=== PATIENT | male | born 1945 | race Caucasian/White ===

== ENCOUNTER → 2017-06-21 | Outpatient (CLI) | payer OTHER ==
[~2017-06-21] MED LIST: APIX5 PO; APIX5TAB PO; ATOR40TA49 PO; DILTCD300 PO; HYDR-3516 PO; LISI10TA3 PO; METO25TA3 PO; MULT-207 PO; VITA1000 PO
--- NOTE | 2017-06-21 10:35 | RADRPT ---
EXAM DATE/TIME: 06/21/2017 10:22 [facility] COMPARISON: No previous studies available for comparison. INDICATIONS : Evaluate for pneumonia,pneumothorax and communicable diseases. Pre-op Colectomy MEDICAL HISTORY : None. SURGICAL HISTORY : None. ENCOUNTER: Initial ACUITY: 1 day PAIN SCORE: 0/10 LOCATION: chest FINDINGS: PA and lateral views of the chest demonstrate the lungs to be symmetrically aerated without evidence of mass, infiltrate or effusion. The cardiomediastinal contours are unremarkable. Osseous structure s are intact. CONCLUSION: Normal examination. Russell Lantigua MD on June 21, 2017 at 10:33 Board Certified Radiologist. This report was verified electronically.
[2017-06-21 10:52] LABS: AUTOMATED NEUTROPHIL # 3.4 TH/MM3 (1.8-7.7); BASOPHIL % 0.6 % (0.0-2.0); EOSINOPHIL # 0.1 TH/MM3 (0-0.4); EOSINOPHIL % 2.8 % (0.0-4.0); HEMATOCRIT 41.7 % (39.0-51.0); HEMO FLAGS DIFF FINAL; LYMPH % 20.5 % (9.0-44.0); MEAN CELL VOLUME 88.6 FL (80.0-100.0); MEAN CORPUSCULAR HEMOGLOBIN 30.4 PG (27.0-34.0); MEAN CORPUSCULAR HGB CONC 34.3 % (32.0-36.0); MONO % 7.8 % (0.0-8.0); NEUT % 68.3 % (16.0-70.0); PLATELET COUNT 140 TH/MM3 (150-450)
[2017-06-21 11:03] LABS: APTT (PATIENT) 26.3 SEC (24.3-30.1); PROTHROMBIN TIME - PATIENT 10.4 SEC (9.8-11.6)
[2017-06-21 11:13] LABS: BLOOD, URINE NEG (NEG); COMMENT (UR) CULT NOT INDICATED; CULTURE IF INDICATED CULT NOT INDICATED; GLUCOSE,URINE NEG (NEG); KETONE, URINE NEG (NEG); MUCUS URINE FEW /lpf (OCC); NITRITE,URINE NEG (NEG); URINE COLOR YELLOW (YELLW/STRAW)
[2017-06-21 11:28] LABS: ALT (GPT) 34 U/L (12-78); ANION GAP 4 MEQ/L (5-15); AST (GOT) 22 U/L (15-37); BICARBONATE 31.2 MEQ/L (21.0-32.0); BLOOD UREA NITROGEN 19 MG/DL (7-18); CHLORIDE 103 MEQ/L (98-107); GLOMERULAR FILTRATION RATE 86 ML/MIN (>89); GLUCOSE,FASTING 100 MG/DL (74-99); POTASSIUM 4.8 MEQ/L (3.5-5.1); SODIUM (NA) 138 MEQ/L (136-145)
[2017-06-21 11:31] LABS: ALKALINE PHOSPHATASE 71 U/L (45-117); TOTAL BILIRUBIN ADULT 0.4 MG/DL (0.2-1.0)
--- NOTE | 2017-06-21 14:04 | EKG ---
Date Performed: 06/21/2017 Time Performed: 09:50:44 PTAGE: 71 years EKG: Sinus rhythm Normal ECG PREVIOUS TRACING : 08/06/2015 12.29 Compared to prior electrocardiogram, Normal sinus rhythm garg s replaced atrial fibrillation DOCTOR: Kishor Collins Interpretating Date/Time 06/21/2017 14:03:11
== END ==
LOC: CPRE 09:20
PROVIDERS: ATTEND Colon & Rectal Surgery
DX: Z01.812 Encounter for preprocedural laboratory examination (principal); Z01.811 Encounter for preprocedural respiratory examination; Z01.810 Encounter for preprocedural cardiovascular examination; C18.2 Malignant neoplasm of ascending colon; Z79.01 Long term (current) use of anticoagulants
CPT/HCPCS: 36415; 71020; 80053; 81001; 82378; 85025; 85610; 85730; 86850; 86900; 86901; 93005

== ENCOUNTER 2017-06-23 10:40 | Inpatient (IN) | payer OTHER, MEDICARE ==
[~2017-06-23] VITALS: Ht 172.7 cm; Wt 89.6 kg
[~2017-06-23 10:40] MED LIST changes: -APIX5 PO; -ATOR40TA49 PO; -DILTCD300 PO; -HYDR-3516 PO
[2017-06-23] MEDS ORDERED: METOPROLOL TARTRATE 25 MG TAB PO PRN (11:15)
[2017-06-23] MEDS ORDERED: SODIUM CHLORID 0.9% 500 ML IV PRN (11:15)
[2017-06-23] MEDS ORDERED: LACTATED RINGER'S 1000 ML IV PRN (11:15)
[2017-06-23] MEDS ORDERED: POVIDONE IODINE 5% (ANTISEPSIS KIT) 4 APPLICATIONS EACH NARE PRN (11:15)
[2017-06-23] MEDS ORDERED: CHLORHEXIDINE GLUCONATE 2 % 1 PACK (2 CLOTHS) TOPICAL PRN (11:15)
[2017-06-23] MEDS ORDERED: METRONIDAZOLE 500 MG/100 ML ISONTONIC SOLN IV SCH (11:30)
[2017-06-23] MEDS ORDERED: ceFAZolin 1,000 MG/NS 100 ML IV SCH ×2 (11:30)
[2017-06-23] MEDS ORDERED: DEXT 5%-NACL 0.9% 1000 ML INJ 1,000 ML IV SCH (11:30)
[2017-06-23] MEDS ORDERED: ALVIMOPAN 12 MG CAPSULE - On Call PO SCH (11:30)
[2017-06-23] MEDS ORDERED: LACTATED RINGER'S 1000 ML INJ 1,000 ML IV ONE ×2 (11:30→12:00)
[2017-06-23] MEDS ORDERED: ONDANSETRON HCL 4 MG/2 ML VIAL IV ONE (12:00)
[2017-06-23] MEDS ORDERED: GLYCOPYRROLATE 1 MG/5 ML SYRINGE IV PUSH ONE (12:00)
[2017-06-23] MEDS ORDERED: NORMOSOL R INJ 1,000 ML IV ONE (12:00)
[2017-06-23] MEDS ORDERED: PROPOFOL 200 MG/20 ML AMP IV ONE (12:00)
[2017-06-23] MEDS ORDERED: LIDOCAINE HCL 1% PF 5 ML SYRINGE OTHER ONE (12:00)
[2017-06-23] MEDS ORDERED: PHENYLEPH/NS 1000 MCG/10 ML SYR IV ONE (12:00)
[2017-06-23] MEDS ORDERED: DEXAMETHASONE SOD PHOS 4 MG/ML VIAL IV ONE (12:00)
[2017-06-23] MEDS ORDERED: ROCURONIUM INJ 50 MG/5 ML SYRINGE IV PUSH ONE (12:00)
[2017-06-23] MEDS ORDERED: SUGAMMADEX SODIUM 200 MG/2 ML VIAL IV PUSH ONE (17:04)
[2017-06-23] MEDS ORDERED: DO NOT ADM ANY ANTICOAGULANT DRUGS PRN (17:25)
[2017-06-23] MEDS ORDERED: BENZOCAINE 6 MG/MENTHOL 10 MG LOZENGE BUCCAL PRN (17:30)
[2017-06-23] MEDS ORDERED: ONDANSETRON HCL 4 MG/2 ML VIAL IV PUSH PRN (17:30)
[2017-06-23] MEDS ORDERED: NALOXONE HCL 0.4 MG/ML AMP IV PUSH PRN (17:30)
[2017-06-23] MEDS ORDERED: Post-op Orders (for Pharmacy) XX ONE (17:30)
[2017-06-23] MEDS ORDERED: POTASSIUM CHLOR 40 MEQ PREMIX 100 ML IV PRN (17:30)
[2017-06-23] MEDS ORDERED: POTASSIUM CHLOR 20 MEQ PREMIX 100 ML IV PRN (17:30)
[2017-06-23] MEDS ORDERED: ACETAMINOPHEN/HYDROcodone 325 MG/5 MG TAB PO PRN (17:30)
[2017-06-23] MEDS ORDERED: SODIUM CHLORIDE 0.9% FLUSH 10 ML FLUSH IV FLUSH PRN (17:30)
[2017-06-23] MEDS ORDERED: ENALAPRILAT 1.25 MG/ML VIAL IV PUSH PRN (17:30)
[2017-06-23] MEDS ORDERED: KETOROLAC TROMETHAMINE 30 MG/ML (IVP) VIAL IVP PRN (17:30)
[2017-06-23] MEDS ORDERED: HYDROmorphone HCL PF 1 MG/ML VIAL ONE (17:32)
[2017-06-23] MEDS ORDERED: *morphine SULFATE 8 MG/ML PERIprocedure ONLY ONE ×2 (17:41→18:07)
[2017-06-23 18:37] LABS: AUTOMATED NEUTROPHIL # 7.2 TH/MM3 (1.8-7.7); BASOPHIL % 0.2 % (0.0-2.0); EOSINOPHIL # 0.1 TH/MM3 (0-0.4); HEMATOCRIT 40.7 % (39.0-51.0); HEMOGLOBIN 14.3 GM/DL (13.0-17.0); LYMPH % 10.4 % (9.0-44.0); LYMPHOCYTE # 0.9 TH/MM3 (1.0-4.8); MEAN CELL VOLUME 88.2 FL (80.0-100.0); MEAN CORPUSCULAR HEMOGLOBIN 30.9 PG (27.0-34.0); MEAN CORPUSCULAR HGB CONC 35.1 % (32.0-36.0); MEAN PLATELET VOLUME 7.9 FL (7.0-11.0); MONO % 2.9 % (0.0-8.0); MONOCYTE # 0.2 TH/MM3 (0-0.9); NEUT % 85.5 % (16.0-70.0); PLATELET COUNT 137 TH/MM3 (150-450); RED BLOOD COUNT 4.61 MIL/MM3 (4.50-5.90); RED CELL DISTRIBUTION WIDTH 13.5 % (11.6-17.2); WHITE BLOOD COUNT 8.4 TH/MM3 (4.0-11.0)
[2017-06-23 18:56] LABS: BICARBONATE 27.9 MEQ/L (21.0-32.0); CALCIUM 8.3 MG/DL (8.5-10.1); CREATININE 0.97 MG/DL (0.60-1.30)
[2017-06-23 19:00] VITALS: BP_SYST 142; BP_SYST 152; BP_DIAS 88; BP_DIAS 90; PULSE 88; PULSE 90; PULSE 97; RESP 16; TEMP 98.3; TEMP 98.5; O2SAT 100; O2SAT 99
[2017-06-23 20:00] VITALS: PULSE 92
[2017-06-23] MEDS: D5-LR + KCL 20 MEQ INJ 1,000 ML IV SCH ×2 (20:23→23:32)
[2017-06-23] MEDS: MORPHINE SULFATE 30 MG/30 ML PCA IV SCH (20:24)
[2017-06-23 21:00] VITALS: PULSE 88
[2017-06-23] MEDS: SODIUM CHLORIDE 0.9% FLUSH 10 ML FLUSH IV FLUSH SCH (21:00)
[2017-06-23] MEDS: METOCLOPRAMIDE HCL 10 MG/2 ML VIAL IVS SCH ×2 (21:33→23:31)
[2017-06-23] MEDS: FUROSEMIDE 20 MG/2 ML VIAL IV PUSH SCH (21:33)
[2017-06-23] MEDS: PCA - TOTAL MG MORPHINE DELIVERED PER SHIFT SCH (21:34)
[2017-06-23 22:00] VITALS: PULSE 100
[2017-06-23 23:00] VITALS: BP 116/60; PULSE 110; PULSE 91; TEMP 98.4; O2SAT 99
[2017-06-23] MEDS: ZOLPIDEM TARTRATE 5 MG TAB PO PRN (23:31)
[2017-06-23] MEDS: ceFAZolin 2 GM PREMIX 50 ML IV SCH (23:31)
[2017-06-23] MEDS: metroNIDAZOLE 500 MG INJ 100 ML IV SCH (23:31)
[2017-06-24] VITALS (19 sets, daily range): BP systolic 109–142; BP diastolic 65–80; PULSE 71–104; RESP 16–20; TEMP 97.7–100; O2SAT 91–99
[2017-06-24] MEDS: D5-LR + KCL 20 MEQ INJ 1,000 ML IV SCH ×3 (04:04→20:37)
[2017-06-24] MEDS: METOCLOPRAMIDE HCL 10 MG/2 ML VIAL IVS SCH ×4 (05:37→22:30)
[2017-06-24] MEDS: PCA - TOTAL MG MORPHINE DELIVERED PER SHIFT SCH ×3 (05:58→20:36)
[2017-06-24 06:57] LABS: AUTOMATED NEUTROPHIL # 7.1 TH/MM3 (1.8-7.7); BASOPHIL % 0.1 % (0.0-2.0); EOSINOPHIL % 0.1 % (0.0-4.0); HEMATOCRIT 36.4 % (39.0-51.0); HEMOGLOBIN 12.8 GM/DL (13.0-17.0); LYMPH % 8.9 % (9.0-44.0); LYMPHOCYTE # 0.8 TH/MM3 (1.0-4.8); MEAN CELL VOLUME 87.3 FL (80.0-100.0); MEAN CORPUSCULAR HEMOGLOBIN 30.7 PG (27.0-34.0); MEAN CORPUSCULAR HGB CONC 35.1 % (32.0-36.0); MEAN PLATELET VOLUME 7.9 FL (7.0-11.0); MONOCYTE # 0.8 TH/MM3 (0-0.9); NEUT % 81.9 % (16.0-70.0); PLATELET COUNT 141 TH/MM3 (150-450); RED BLOOD COUNT 4.17 MIL/MM3 (4.50-5.90); WHITE BLOOD COUNT 8.6 TH/MM3 (4.0-11.0)
[2017-06-24 07:22] LABS: BICARBONATE 29.9 MEQ/L (21.0-32.0); CALCIUM 8.2 MG/DL (8.5-10.1); CREATININE 0.94 MG/DL (0.60-1.30)
[2017-06-24] MEDS: SODIUM CHLORIDE 0.9% FLUSH 10 ML FLUSH IV FLUSH SCH ×2 (08:55→21:00)
[2017-06-24] MEDS ORDERED: ALVIMOPAN 12 MG CAPSULE PO SCH (09:00)
[2017-06-24] MEDS: metroNIDAZOLE 500 MG INJ 100 ML IV SCH ×2 (09:03→16:20)
[2017-06-24] MEDS: ceFAZolin 2 GM PREMIX 50 ML IV SCH ×2 (09:05→16:20)
[2017-06-24] MEDS: LISINOPRIL 10 MG TAB PO SCH (09:06)
[2017-06-24] MEDS: ALVIMOPAN 12 MG CAPSULE - Post-op dosing PO SCH ×2 (09:06→20:34)
[2017-06-24] MEDS: METOPROLOL TARTRATE 25 MG TAB PO SCH ×2 (09:06→20:35)
[2017-06-24] MEDS: FUROSEMIDE 20 MG/2 ML VIAL IV PUSH SCH ×2 (09:07→20:34)
[2017-06-24] MEDS: PANTOPRAZOLE SODIUM 40 MG VIAL IVP SCH (09:07)
[2017-06-24] MEDS: MORPHINE SULFATE 30 MG/30 ML PCA IV SCH (09:50)
--- NOTE | 2017-06-24 15:37 | HHI.PR ---
Subjective Remarks No N or V. Tolerating CLD. No BMs Objective Vital Signs Date Time Temp Pulse Resp B/P (MAP) Pulse Ox O2 Delivery O2 Flow Rate FiO2 06/24/17 14:07 85 06/24/17 13:55 92 06/24/17 13:20 16 06/24/17 13:12 79 06/24/17 12:03 81 06/24/17 11:47 81 06/24/17 11:47 97.7 86 16 123/69 (87) 94 06/24/17 10:36 82 06/24/17 10:03 16 06/24/17 09:50 16 06/24/17 09:00 87 06/24/17 08:45 79 06/24/17 08:45 97.9 84 16 142/80 (100) 99 06/24/17 05:58 18 06/24/17 05:06 73 06/24/17 04:00 79 06/24/17 03:36 95 06/24/17 03:00 97.8 93 109/68 (82) 99 06/24/17 02:45 99 Nasal Cannula 3.00 06/24/17 02:00 94 06/24/17 01:00 104 06/24/17 00:00 94 06/23/17 23:00 98.4 110 116/60 (78) 99 06/23/17 23:00 91 06/23/17 22:00 100 06/23/17 21:34 16 06/23/17 21:00 88 06/23/17 20:24 17 06/23/17 20:00 92 06/23/17 19:00 98.3 90 142/88 (106) 100 06/23/17 19:00 97 06/23/17 19:00 98.5 88 16 152/90 (110) 99 06/23/17 18:15 90 17 153/79 (103) 100 Nasal Cannula 3 06/23/17 18:15 97.9 91 17 153/78 (103) 100 Nasal Cannula 3 06/23/17 18:00 87 17 152/78 (102) 100 Nasal Cannula 3 06/23/17 17:45 84 14 174/78 (110) 100 Nasal Cannula 3 06/23/17 17:26 97.6 87 15 161/76 (104) 100 Nasal Cannula 3 I/O 06/23/17 06/23/17 06/23/17 06/24/17 06/24/17 06/24/17 07:00 15:00 23:00 07:00 15:00 23:00 Intake Total 1000 ml 1500 ml 3390 ml 150 ml Output Total 325 ml 1600 ml Balance 1000 ml 1175 ml 1790 ml 150 ml Intake Oral 240 ml IV Total 1000 ml 300 ml 3150 ml 150 ml Other 1200 ml Output Urine Total 250 ml 1600 ml Estimated Blood Loss 75 ml # Bowel Movements 2 Result Diagram: 06/24/17 0559 06/24/17 05 Objective Remarks VS-S Abd: dressing dry, soft I&Os and Labs - OK Assessment and Plan Assessment and Plan POD#1 Transfer to Decrease IV CLD today FLD tomorrow D/C pfeiffer in AM Remove dressing in AM Caleb Andrade MD Jun 24, 2017 15:37
[2017-06-24] MEDS: HEPARIN SODIUM - SQ 10,000 UNITS/ML VIAL SQ SCH (16:24)
[2017-06-25] VITALS (7 sets, daily range): BP systolic 126–168; BP diastolic 76–86; PULSE 73–95; RESP 17–20; TEMP 98–98.9; O2SAT 95–97
[2017-06-25] MEDS: MORPHINE SULFATE 30 MG/30 ML PCA IV SCH (00:50)
[2017-06-25] MEDS: HEPARIN SODIUM - SQ 10,000 UNITS/ML VIAL SQ SCH ×2 (03:50→14:35)
[2017-06-25] MEDS: METOCLOPRAMIDE HCL 10 MG/2 ML VIAL IVS SCH ×3 (04:20→16:32)
[2017-06-25] MEDS: PCA - TOTAL MG MORPHINE DELIVERED PER SHIFT SCH ×3 (04:20→20:58)
[2017-06-25] MEDS: D5-LR + KCL 20 MEQ INJ 1,000 ML IV SCH ×2 (04:20→15:16)
[2017-06-25] MEDS: FUROSEMIDE 20 MG/2 ML VIAL IV PUSH SCH ×2 (08:41→20:58)
[2017-06-25] MEDS: PANTOPRAZOLE SODIUM 40 MG VIAL IVP SCH (08:41)
[2017-06-25] MEDS: SODIUM CHLORIDE 0.9% FLUSH 10 ML FLUSH IV FLUSH SCH ×2 (08:41→20:58)
[2017-06-25] MEDS: METOPROLOL TARTRATE 25 MG TAB PO SCH ×2 (08:41→20:57)
[2017-06-25] MEDS: LISINOPRIL 10 MG TAB PO SCH (08:41)
[2017-06-25] MEDS: ALVIMOPAN 12 MG CAPSULE - Post-op dosing PO SCH ×2 (08:41→20:57)
[2017-06-25 08:59] LABS: AUTOMATED NEUTROPHIL # 7.7 TH/MM3 (1.8-7.7); BASOPHIL % 0.1 % (0.0-2.0); EOSINOPHIL % 0.4 % (0.0-4.0); HEMATOCRIT 40.4 % (39.0-51.0); HEMOGLOBIN 14.2 GM/DL (13.0-17.0); LYMPH % 9.9 % (9.0-44.0); LYMPHOCYTE # 0.9 TH/MM3 (1.0-4.8); MEAN CELL VOLUME 88.3 FL (80.0-100.0); MEAN CORPUSCULAR HGB CONC 35.1 % (32.0-36.0); MEAN PLATELET VOLUME 7.6 FL (7.0-11.0); MONO % 8.3 % (0.0-8.0); MONOCYTE # 0.8 TH/MM3 (0-0.9); NEUT % 81.3 % (16.0-70.0); PLATELET COUNT 145 TH/MM3 (150-450); RED BLOOD COUNT 4.58 MIL/MM3 (4.50-5.90); RED CELL DISTRIBUTION WIDTH 13.1 % (11.6-17.2); WHITE BLOOD COUNT 9.5 TH/MM3 (4.0-11.0)
[2017-06-25 09:19] LABS: BICARBONATE 29.9 MEQ/L (21.0-32.0); CALCIUM 8.8 MG/DL (8.5-10.1); CREATININE 0.91 MG/DL (0.60-1.30)
--- NOTE | 2017-06-25 09:59 | HHI.PR ---
Subjective Remarks C/R Surg POD #2 afebrile, VSS UO good rosmery little PO, no appet Objective - Vital Signs Date Time Temp Pulse Resp B/P (MAP) Pulse Ox O2 Delivery O2 Flow Rate FiO2 06/25/17 08:00 98.4 73 17 135/78 (97) 95 06/24/17 02:45 Nasal Cannula 3.00 Result Diagram: 06/25/17 0810 06/25/17 0810 Objective Remarks PE alert Abd - full, soft, wound dry no flatus A/P Assessment and Plan Imp: OOB slow PO decr IVF Oseas Mchugh MD Jun 25, 2017 09:59
--- NOTE | 2017-06-25 18:14 | MP ---
cc: CONY ANDRADE HASSAN MD DATE OF SURGERY 06/23/17 PREOPERATIVE DIAGNOSIS Probable ascending colon cancer. POSTOPERATIVE DIAGNOSIS Ascending colon cancer. OPERATIVE PROCEDURE Ascending colectomy. ANESTHESIA General endotracheal SURGEON Dr. Julissa Andrade STOREHOUSE CLERK Dr. Ava Braron ESTIMATED BLOOD LOSS Minimal. OPERATING TIME 50 minutes. OPERATIVE FINDINGS This patient was found by Dr. Santiago Powell to have an ulcerated 2 cm lesion in the ascending colon. All the biopsies were benign adenomatous tissue, however, in speaking with Dr. Powell it was felt that this was most likely a carcinoma and it could not be removed with a colonoscopy. At surgery, a small 1.5 to 2 cm ulcerated lesion was found in the proximal ascending colon just distal to the cecum. A full ascending colectomy was done with an ileotransverse anastomosis. Exploration of the abdominal cavity revealed that the liver was palpably normal as was the gallbladder and stomach and the remainder of the small bowel and peritoneum. There was no evidence of any metastatic disease. OPERATIVE TECHNIQUE The patient was placed on the table in the supine position after adequate general endotracheal anesthesia. The abdomen was prepped and draped in usual manner. Transverse right-sided supraumbilical skin incision was made and carried down through the subcutaneous tissue to the rectus muscles. The peritoneal cavity was entered with the above-mentioned findings. Exploration of the abdominal cavity revealed that the lesion was in the proximal ascending colon as mentioned. First, our attention was turned to the cecum. It was mobilized up out of the pelvis along with the terminal ileum and then the ascending colon was mobilized along its peritoneal reflection with electrocautery. It was mobilized from the retroperitoneum and the duodenum and the lesser sac was entered posterior to the stomach. The hepatic flexure was fully mobilized and the mid portion of the transverse colon was identified and the right branches of the middle colic vessels and marginal vessels were clamped, cut and ligated and the right portion of the transverse colon was divided with an Ethicon MAE 55 stapling device. Next, my attention was turned to the ileocolic vessels which were the vessels of distribution for this colon cancer and the terminal ileum was cleared and divided between Dave clamps. The ileal vessels were clamped, cut and ligated at the margin of the ileum. Next, our attention was turned to the ileocolic vessels and the proximal point of dissection was obtained and the ileocolic vessels were doubly clamped, cut and doubly ligated with 0 Vicryl ligatures and the right colic vessels were then isolated, clamped, cut and ligated and the specimen was removed from the table. Next, the anastomosis was carried out along the antimesenteric borders of the small bowel and the transverse colon and the anastomosis was done with an EthiLightspeed MAE 55 stapling device. Once this was done, the colotomy was closed with a TX 60 blue staple height stapler and then the opening in the mesentery was closed with a running 3-0 Vicryl in a simple running manner. Once the mesentery was approximated, the abdominal cavity was irrigated thoroughly with saline solution and inspected for hemostasis. Hemostasis was maintained throughout with electrocautery and ligature. The bowels were then replaced in the abdominal cavity in an platform loader manner and the abdominal cavity was closed in layers using a double-stranded #1 PDS for the posterior rectus sheath and after irrigating with a liter of saline solution, a double-stranded #1 PDS was used for the anterior rectus sheath and external oblique as well. Subcutaneous tissue was irrigated thoroughly with saline solution, aspirated dry and then the skin was closed with running 3-0 Vicryl subcuticular sutures and a dressing was applied. Sponge, needle and instrument counts were reported as correct. Estimated blood loss was minimal. Operating time was 50 minutes. The patient tolerated the procedure well and left the operating room in good condition. MD GERARDO Paul/ /8:44 PM /5:45 PM
--- NOTE | 2017-06-25 19:45 | RADRPT ---
EXAM DATE/TIME: 06/25/2017 18:41 [facility] COMPARISON: CHEST SINGLE AP, August 06, 2015, 9:24. INDICATIONS : Eval gastric distention. MEDICAL HISTORY : Hypertension. Hypercholesterolemia. SURGICAL HISTORY : Colectomy. ENCOUNTER: Subsequent ACUITY: 2 days PAIN SCORE: 7/10 LOCATION: Bilateral Lower abdomen FINDINGS: Single AP view of the chest. Low lung volumes. The lungs are clear. Cardiomediastinal silhouette with in normal limits. No evidence of pleural effusion or pneumothorax. Diffusely moderately distended col on is noted in the abdomen. CONCLUSION: 1. No acute cardiopulmonary disease identified. 2. Diffuse moderate air-filled distention of colon suggesting ileus. Catarino Arevalo MD on June 25, 2017 at 19:39 Board Certified Radiologist. This report was verified electronically.
[2017-06-26] VITALS (7 sets, daily range): BP systolic 123–164; BP diastolic 71–92; PULSE 76–96; RESP 18–20; TEMP 97–98.7; O2SAT 95–98
[2017-06-26] MEDS: HEPARIN SODIUM - SQ 10,000 UNITS/ML VIAL SQ SCH ×3 (00:29→21:25)
[2017-06-26] MEDS: ZOLPIDEM TARTRATE 5 MG TAB PO PRN ×2 (00:29→21:24)
[2017-06-26] MEDS: D5-LR + KCL 20 MEQ INJ 1,000 ML IV SCH ×2 (02:13→21:25)
[2017-06-26] MEDS: PCA - TOTAL MG MORPHINE DELIVERED PER SHIFT SCH ×2 (05:32→10:19)
[2017-06-26] MEDS: METOCLOPRAMIDE HCL 10 MG/2 ML VIAL IVS SCH ×2 (05:34)
[2017-06-26] MEDS: ALVIMOPAN 12 MG CAPSULE - Post-op dosing PO SCH ×2 (08:05→21:16)
[2017-06-26] MEDS: METOPROLOL TARTRATE 25 MG TAB PO SCH ×2 (08:05→21:10)
[2017-06-26] MEDS: LISINOPRIL 10 MG TAB PO SCH (08:05)
[2017-06-26] MEDS: PANTOPRAZOLE SODIUM 40 MG VIAL IVP SCH (08:06)
[2017-06-26] MEDS: FUROSEMIDE 20 MG/2 ML VIAL IV PUSH SCH (08:06)
[2017-06-26] MEDS: SODIUM CHLORIDE 0.9% FLUSH 10 ML FLUSH IV FLUSH SCH ×2 (08:07→21:25)
--- NOTE | 2017-06-26 09:25 | HHI.PR ---
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
[2017-06-26] MEDS ORDERED: METOCLOPRAMIDE HCL 10 MG/2 ML VIAL IVS PRN (09:30)
[2017-06-26] MEDS: ACETAMINOPHEN/HYDROcodone 325 MG/5 MG TAB PO PRN (15:46)
[2017-06-26] MEDS: APIXABAN 5 MG TABLET PO SCH (21:10)
--- NOTE | 2017-06-26 22:01 | EKG ---
Date Performed: 06/25/2017 Time Performed: 17:56:02 PTAGE: 71 years EKG: Sinus rhythm NORMAL ECG PREVIOUS TRACING : 06/21/2017 09.50 Compared to prior tracing no significant change DOCTOR: Daniela Aguirre Interpretating Date/Time 06/26/2017 21:59:49
[2017-06-27 07:31] VITALS: BP 134/82; PULSE 88; RESP 19; TEMP 98; O2SAT 97
[2017-06-27] MEDS: ALVIMOPAN 12 MG CAPSULE - Post-op dosing PO SCH (08:09)
[2017-06-27] MEDS: LISINOPRIL 10 MG TAB PO SCH (08:09)
[2017-06-27] MEDS: APIXABAN 5 MG TABLET PO SCH (08:09)
[2017-06-27] MEDS: METOPROLOL TARTRATE 25 MG TAB PO SCH (08:09)
[2017-06-27] MEDS: PANTOPRAZOLE SODIUM 40 MG VIAL IVP SCH (08:18)
[2017-06-27] MEDS: SODIUM CHLORIDE 0.9% FLUSH 10 ML FLUSH IV FLUSH SCH (08:18)
[2017-06-27] MEDS ORDERED: HYDR-3516 PO (09:17)
--- NOTE | 2017-06-27 09:37 | HHI.PR ---
Subjective Remarks C/R Surg POD #4 afebrile, VSS UO good rosmery little PO, no appet - less abd pain Objective - Vital Signs Date Time Temp Pulse Resp B/P (MAP) Pulse Ox O2 Delivery O2 Flow Rate FiO2 06/27/17 07:31 98.0 88 19 134/82 (99) 97 06/24/17 02:45 Nasal Cannula 3.00 Result Diagram: 06/25/17 0810 06/25/17 0810 Objective Remarks PE alert Abd - full, soft, wound dry/clean +liq stool A/P Assessment and Plan Imp: OOB slow PO decr IVF dc plans Oseas Mchugh MD Jun 27, 2017 09:37
[2017-06-27] MEDS: D5-LR + KCL 20 MEQ INJ 1,000 ML IV SCH (11:27)
[2017-06-27] MEDS: ACETAMINOPHEN/HYDROcodone 325 MG/5 MG TAB PO PRN (12:18)
[2017-06-27 12:59] VITALS: RESP 18
== END 2017-06-27 13:16 | disposition home or self-care (01) | DRG 331 ==
LOC: HSDI 10:40 → HCIS 18:57 → N07B 06-24 17:19
PROVIDERS: ADMIT Colon & Rectal Surgery; ATTEND Colon & Rectal Surgery
PROC: 0DTK0ZZ Resection of Ascending Colon, Open Approach (ICD-10-PCS; principal; 2017-06-23 15:52)
DX: C18.2 Malignant neoplasm of ascending colon (principal); D12.2 Benign neoplasm of ascending colon; N18.9 Chronic kidney disease, unspecified; I12.9 Hypertensive chronic kidney disease with stage 1 through stage 4 chronic kidney disease, or unspecified chronic kidney disease
CPT/HCPCS: 36415; 71010; 71020; 80048; 80053; 81001; 82378; 85025; 85610; 85730; 86850; 86900; 86901; 88307; 88309; 93005; 94150; C9113; J0690; J1100; J1170; J1644; J1885; J1940; J2270; J2370; J2405; J2765; J3480; J7120

== ENCOUNTER 2017-10-24 11:54 | Inpatient (IN) | payer OTHER, MEDICARE ==
[~2017-10-24] VITALS: Ht 172.7 cm; Wt 82.1 kg
[~2017-10-24 11:54] MED LIST changes: +HYDR-3516 PO; +ROSU40 PO
[2017-10-24] MEDS ORDERED: PROPOFOL 200 MG/20 ML AMP IV ONE (12:00)
[2017-10-24] MEDS ORDERED: ceFAZolin INJ 1,000 MG VIAL IV ONE (12:00)
[2017-10-24] MEDS ORDERED: PHENYLEPH/NS 1000 MCG/10 ML SYR IV ONE (12:00)
[2017-10-24] MEDS ORDERED: NEOSTIGMINE 5 MG/5 ML SYRINGE IV PUSH ONE (12:00)
[2017-10-24] MEDS ORDERED: ROCURONIUM INJ 50 MG/5 ML SYRINGE IV PUSH ONE (12:00)
[2017-10-24] MEDS ORDERED: ePHEDrine/NS 25 MG/5 ML SYRINGE IV ONE (12:00)
[2017-10-24] MEDS ORDERED: LIDOCAINE HCL 1% PF 5 ML SYRINGE OTHER ONE (12:00)
[2017-10-24] MEDS ORDERED: ONDANSETRON HCL 4 MG/2 ML VIAL IV ONE (12:00)
[2017-10-24] MEDS ORDERED: DEXAMETHASONE SOD PHOS 4 MG/ML VIAL IV ONE (12:00)
[2017-10-24] MEDS ORDERED: GLYCOPYRROLATE 1 MG/5 ML SYRINGE IV PUSH ONE (12:00)
[2017-10-24] MEDS ORDERED: PHENYLEPHRINE HCL 10 MG/ML VIAL IV ONE (12:00)
[2017-10-24] MEDS ORDERED: INSULIN HUMAN REGULAR 1,000 UNITS/10 ML VIAL SQ PRN (12:15)
[2017-10-24] MEDS ORDERED: SODIUM CHLORID 0.9% 500 ML IV PRN (12:15)
[2017-10-24] MEDS ORDERED: METOPROLOL TARTRATE 25 MG TAB PO PRN (12:15)
[2017-10-24] MEDS ORDERED: POVIDONE IODINE 5% (ANTISEPSIS KIT) 4 APPLICATIONS EACH NARE PRN (12:15)
[2017-10-24] MEDS ORDERED: CHLORHEXIDINE GLUCONATE 2 % 1 PACK (2 CLOTHS) TOPICAL PRN (12:15)
[2017-10-24] MEDS ORDERED: LACTATED RINGER'S 1000 ML IV PRN (12:15)
[2017-10-24] MEDS ORDERED: VANCOMYCIN 1 GM/200 ML PREMIX IV SCH (12:30)
[2017-10-24] MEDS ORDERED: CHLORHEXIDINE GLUCONATE 4% SOLN 120 ML BTL TOPICAL SCH (12:30)
[2017-10-24] MEDS ORDERED: ceFAZolin 2 GM PREMIX 50 ML IV SCH (12:30)
[2017-10-24] MEDS ORDERED: TYLE325T PO (12:39)
[2017-10-24] MEDS ORDERED: ACETAMINOPHEN 1000 MG/100 ML 100 ML IV ONE (12:47)
[2017-10-24] MEDS ORDERED: FAT EMULSION 20% INJ 0 ML ONE (14:05)
[2017-10-24] MEDS ORDERED: MIDAZOLAM HCL 2 MG/2 ML VIAL ONE (14:06)
[2017-10-24] MEDS ORDERED: DEXAMETHASONE SOD PHOS PF 10 MG/ML VIAL ONE (14:06)
[2017-10-24] MEDS ORDERED: BUPIVACAINE HCL PF 0.5% 30 ML VIAL ONE (14:07)
[2017-10-24] MEDS ORDERED: ALUMINUM/MAGNESIUM/SIMETH 30 ML CUP PO PRN (17:30)
[2017-10-24] MEDS ORDERED: ACETAMINOPHEN/HYDROcodone 325 MG/7.5 MG TAB PO PRN (17:30)
[2017-10-24] MEDS ORDERED: Post-op Orders (for Pharmacy) XX ONE (17:30)
[2017-10-24] MEDS ORDERED: ZOLPIDEM TARTRATE 5 MG TAB PO PRN (17:30)
[2017-10-24] MEDS ORDERED: ONDANSETRON HCL 4 MG/2 ML VIAL IVP PRN (17:30)
[2017-10-24] MEDS ORDERED: MORPHINE SULFATE 4 MG/ML INJ IV PRN (17:45)
[2017-10-24] MEDS ORDERED: DO NOT ADM ANY ANTICOAGULANT DRUGS PRN (18:05)
--- NOTE | 2017-10-24 18:11 | HHI.PR ---
Immediate Post Op Note Procedure Date: Oct 24, 2017 Pre Op Diagnosis: L Shoulder G-H joint OA Post Op Diagnosis: Same Surgeon: Lalit Yancey MD Technical Account Representative(s): Barb Andrade PA-C Procedure: L TSR Complications: None Specimen(s) removed: None Estimated blood loss: 100cc Anesthesia: General, Regional Block Drains: None Patient to: PACU Patient Condition: Good Implant/Devices: SEE IMPLANT LOG (if applicable) Date/Time of Procedure: SEE SURGICAL CARE RECORD Lalit Yancey MD Oct 24, 2017 18:11
[2017-10-24] MEDS ORDERED: *morphine SULFATE 4 MG/ML PERIprocedure ONLY ONE ×2 (18:24→19:15)
[2017-10-24] MEDS: LACTATED RINGER'S 1000 ML INJ 1,000 ML IV SCH (18:30)
--- NOTE | 2017-10-24 18:33 | RADRPT ---
EXAM DATE/TIME: 10/24/2017 18:14 [facility] COMPARISON: No previous studies available for comparison. INDICATIONS : Post operative left shoulder. MEDICAL HISTORY : Hypertension. Hypercholesterolemia. SURGICAL HISTORY : Colectomy. ENCOUNTER: Initial ACUITY: 1 day PAIN SCORE: Non-responsive. LOCATION: Left shoulder. FINDINGS: Patient is status post left humeral head arthroplasty that appears intact and normally aligned. No un expected radiopaque objects. No fracture or evidence of hardware failure. There is chronic remodeling of the glenoid. CONCLUSION: Left humeral head arthroplasty changes without evidence of an acute complication. Caleb Delarosa MD on October 24, 2017 at 18:29 Board Certified Radiologist. This report was verified electronically.
--- NOTE | 2017-10-24 19:33 | MP ---
cc: Lalit Yancey MD, Y Rao, Surya P MD DATE OF OPERATION: 10/24/2017 PREOPERATIVE DIAGNOSES: Left shoulder severe glenohumeral joint osteoarthritis. POSTOPERATIVE DIAGNOSIS: Left shoulder severe glenohumeral joint osteoarthritis. PROCEDURE: Left total shoulder arthroplasty. SURGEON: Lalit Kidd MD CABLE REELER: Barb Andrade PA-C ESTIMATED BLOOD LOSS: 100 mL ANESTHESIA: General, interscalene block. DRAINS: None. Sling. COMPLICATIONS: None. PLAN: Activities per orders. PROCEDURE IN DETAIL: My public services assistant, Barb Andrade PA-C, was present for the entire surgical case. She was medically necessary for the entire case because of the complexity of the case and to facilitate the performance of the procedure. The PLUGGER MAN was at the back table and was not of skill-set for this case to manipulate the instruments, e.g., the multiple different types of soft tissue retractors, trial implants and permanent implants. The patient was brought in the operating room, had a satisfactory interscalene anesthesia, followed by general anesthesia by the department of anesthesia. The patient was placed in a modified beach chair position. The left shoulder, thorax, upper extremity, down to including the fingers were all prepped and draped in the usual sterile manner. A small anterior exposure to the shoulder was made. All bleeders were coagulated. Deltopectoral groove was identified. The cephalic vein was retracted medially. Soft tissue dissection was carried to the conjoined tendon. The fascia was opened. The interval underneath the conjoined tendon was identified. Great care was made to protect the musculocutaneous nerve throughout the entire operative procedure. The subscapularis tendon and the capsule were incised anteriorly. Multiple #2 Ti-Cron suture were then used to secure the subscapularis tendon. The shoulder was dislocated anteriorly. The patient was found to have severe arthritis involving the glenohumeral joint. Using the ScubaTribe shoulder system, guide was used at 30 degrees retroversion. Osteotomy was made on the neck at the appropriate level. At this time, patient was found to have almost a completely torn long head of biceps tendon. A tenodesis was made with surrounding soft tissues using #2 Ti-Cron sutures. Exposure to the glenoid was made. Using hemispherical reamers, it was contoured to accept a 56 mm bicentric glenoid cup. Attention brought to the stem of the humerus. Sequentially hand reamed to 12 mm, sequentially broached to 12 mm, 30 degrees of retroversion. Trial reduction was made with 22.2 mm head and a +2 humeral neck. The shoulder was reduced. The patient was found to have satisfactory range of motion, excellent "fit and fill." The trial components were removed and preparation for insertion of components was made. A #12 standard length primary humeral stem was inserted, approximately 30 degrees of retroversion. A +2 height of the neck was assembled with the 22.2 mm humeral head. The shoulder was reduced. Again, the patient was found to have excellent stability to the shoulder and satisfactory range of motion. The wound was irrigated with copious amounts of sterile antibiotic saline solution. The subscapularis with the shoulder held in neutral position was repaired back using the multiple #2 Ti-Cron sutures. Deltopectoral groove was closed with 0 Vicryl, subcutaneous closed with 2-0 Vicryl, skin was approximated with running subcuticular 2-0 nylon. Instrument and sponge counts correct at end of operation. The patient tolerated the procedure well and went to recovery room in stable and satisfactory condition. MD SHERITA De Paz/PAULIE , 06:02 PM , 07:32 PM KE
[2017-10-24 20:30] VITALS: BP 155/88; PULSE 105; RESP 17; TEMP 97.3; O2SAT 100
[2017-10-24] MEDS: METOPROLOL TARTRATE 25 MG TAB PO SCH (20:57)
[2017-10-24] MEDS: ACETAMINOPHEN/HYDROcodone 325 MG/7.5 MG TAB PO PRN (20:58)
[2017-10-25] VITALS: BP 145/87; PULSE 110; RESP 18; TEMP 97.8; O2SAT 97
[2017-10-25] MEDS: ACETAMINOPHEN/HYDROcodone 325 MG/7.5 MG TAB PO PRN ×2 (03:17→10:42)
[2017-10-25 04:25] VITALS: BP 105/63; PULSE 90; RESP 17; TEMP 97.1; O2SAT 96
[2017-10-25] MEDS: LACTATED RINGER'S 1000 ML INJ 1,000 ML IV SCH (04:34)
[2017-10-25 06:02] LABS: HEMATOCRIT 36.5 % (39.0-51.0); HEMOGLOBIN 12.7 GM/DL (13.0-17.0)
--- NOTE | 2017-10-25 07:02 | PD.ORT.PN ---
Subjective Subjective Remarks POD#1 L TSR No c/o pain;not sob Objective Vitals Vital Signs Date Time Temp Pulse Resp B/P (MAP) Pulse Ox O2 Delivery O2 Flow Rate FiO2 10/25/17 04:25 97.1 90 17 105/63 (77) 96 10/25/17 00:00 97.8 110 18 145/87 (106) 97 10/24/17 20:30 97.3 105 17 155/88 (110) 100 10/24/17 20:03 97.6 89 16 120/72 (88) 100 Nasal Cannula 2 10/24/17 19:15 93 16 118/58 (78) 91 Nasal Cannula 2 10/24/17 19:00 93 16 113/68 (83) 98 10/24/17 18:45 88 12 116/65 (82) 100 Room Air 10/24/17 18:30 85 16 110/64 (79) 100 Nasal Cannula 2 10/24/17 18:15 83 16 120/67 (84) 100 Nasal Cannula 2 10/24/17 18:02 97.5 91 18 132/77 (95) 95 Nasal Cannula 2 10/24/17 13:30 100 Nasal Cannula 10/24/17 12:20 98.6 80 16 136/67 (90) 100 I/O 10/24/17 10/24/17 10/24/17 10/25/17 10/25/17 10/25/17 07:00 15:00 23:00 07:00 15:00 23:00 Intake Total 1200 ml 1088 ml Output Total 100 ml Balance 1100 ml 1088 ml Intake IV Total 1200 ml 1088 ml Output Estimated Blood Loss 100 ml Result Diagram: 10/25/17 0512 Objective Remarks N/V intact Dressings dry Assessment & Plan Assessment and Plan Ortho stable D/C home today initiate PT tomorrow Lalit Yancey MD Oct 25, 2017 07:02
[2017-10-25 08:00] VITALS: BP 112/62; PULSE 80; RESP 18; TEMP 97.3; O2SAT 97
[2017-10-25] MEDS: METOPROLOL TARTRATE 25 MG TAB PO SCH (08:45)
[2017-10-25] MEDS ORDERED: ATORVASTATIN 80 MG TAB PO SCH (09:00)
[2017-10-25] MEDS ORDERED: LISINOPRIL 10 MG TAB PO SCH (09:00)
[2017-10-25 11:59] VITALS: BP 108/68; PULSE 73; RESP 18; TEMP 97.6; O2SAT 99
[2017-10-25] MEDS ORDERED: DOCUSATE SODIUM 100 MG CAP PO SCH (21:00)
== END 2017-10-25 16:38 | disposition home or self-care (01) | DRG 483 ==
LOC: HSDI 11:54 → N06A 20:20
PROVIDERS: ADMIT Orthopaedic Surgery Orthopaedic Surgery of the Spine; ATTEND Orthopaedic Surgery Orthopaedic Surgery of the Spine
PROC: 0LQ40ZZ Repair Left Upper Arm Tendon, Open Approach (ICD-10-PCS; 2017-10-24)
PROC: 0RRK0JZ Replacement of Left Shoulder Joint with Synthetic Substitute, Open Approach (ICD-10-PCS; principal; 2017-10-24 16:08)
DX: M19.012 Primary osteoarthritis, left shoulder (principal); I48.91 Unspecified atrial fibrillation; N18.3 Chronic kidney disease, stage 3 (moderate); I12.9 Hypertensive chronic kidney disease with stage 1 through stage 4 chronic kidney disease, or unspecified chronic kidney disease; E78.5 Hyperlipidemia, unspecified; S46.112A Strain of muscle, fascia and tendon of long head of biceps, left arm, initial encounter; Z79.01 Long term (current) use of anticoagulants
CPT/HCPCS: 73020; 85014; 85018; 86850; 86900; 86901; 86920; 94150; C1776; J0131; J0690; J1100; J2250; J2270; J2370; J2405; J2710; J3010; J3370; J7120